=== PATIENT | male | born 1965 | race Caucasian/White ===

== ENCOUNTER 2023-08-28 23:19 | Emergency (ER) | payer BC, SELFPAY ==
[2023-08-28 23:19] VITALS: BMI 28.4
[2023-08-28 23:34] VITALS: BP 194/101
--- NOTE | 2023-08-29 00:26 | ED.GENMED ---
History of Present Illness
<BRENNAN Denis - Last Filed: 08/29/23 03:57>
General
Chief Complaint: Flank Pain
Source: patient and spouse
Exam Limitations: none
Time Seen by Provider: 08/29/23 00:15
Nursing documentation reviewed up to this point in time: agreed with
Travel History
Have you had any contact with someone who has COVID-19?: No
Do you have any symptoms of coronavirus? Fever > 100 degrees, chills, cough, shortness of breath, sore throat, loss of taste or smell, muscle aches, or headache?: No
History of Present Illness
History of Present Illness:
This is a 58 year old male, with a PMH of HTN, HLD, psoriasis, and kidney stones, who reports to the ED c/o left sided flank pain. Pt states the pain started 1 week ago, but only lasted for 1 hour before resolving. The pain returned this morning and
has been worsening since. Pt took tylenol around 3 hours ago which has not helped with the pain. He states the pain is constant and radiates down to the left side of his groin. This pain feels much worse than the last time he had a kidney stone. Pt
also states he has had reflux since eating azeri food and soda for dinner. He also states since arriving at the hospital, he has felt the urge to urinate but he has only urinated a little. He denies any CP, SOB, nausea, vomiting, dysuria,
hematuria, lightheadedness, dizziness, or constipation.
Pt last had a kidney stone in 2018 for which he had to have surgery to remove it from his ureter. He has a family history of kidney stones in his mother and sister. Pt drinks alcohol 3x weekly and denies any cigarette smoking or drug use.
Past History
<BRENNAN Denis - Last Filed: 08/29/23 03:57>
Past History
ED Past Medical History: HTN (no meds), Hypercholesterolemia and Other (kidney stones, psoriasis, hemorrhoids)
ED Past Surgical History: Urological (kidney stone removal)
Patient has exhibited threatening behavior?: No
Social History
Tobacco: Former smoker
Alcohol: Occasional
Drug: None
Personal:
Living: with family
Family History
Family History: Other (kidney stones)
Review of Systems
<BRENNAN Denis - Last Filed: 08/29/23 03:57>
Review of Systems
Allergies reviewed?: Yes
Other source history: family
All Other Systems: ROS reviewed and negative except as documented in HPI and ROS
Constitutional: Reports no symptoms; Denies fever or chills
EENT: Reports no symptoms
Respiratory: Reports no symptoms; Denies trouble breathing
Cardiac: Reports no symptoms; Denies chest pain
ABD/GI: Reports abdominal pain (left flank pain, left groin pain); Denies nausea, vomiting or constipated
: Reports flank pain and urgency; Denies dysuria, frequency or bleeding
Musculoskeletal: Reports no symptoms
Skin: Reports no symptoms
Neurological: Reports no symptoms; Denies dizzy
Psychiatric: Reports no symptoms
Phy Exam
<Ingrid Lynn [facility] - Last Filed: 08/29/23 03:57>
General Physical Exam
General Presentation: well appearing and no apparent distress
General age: appears stated age
General Skin: warm and dry
General Habitus: normal
General Mental: alert
General Hydration: appears well hydrated
ENT Exam
ENT Exam: neck supple and normocephalic
Cardiovascular Exam
Cardiovascular Exam: regular rate/rhythm, no edema, no murmur and normal peripheral pulses
Heart Sounds: normal
Pulmonary Exam
Pulmonary Exam: lungs clear, no respiratory distress, no crackles, no wheezing and no cough
Oxygen Status: room air
Gastrointestinal Exam
Gastrointestinal Exam: normal bowel sounds, non tender, soft and cva tenderness (left sided, no right sided CVA tenderness)
Neurological Exam
Neurological Exam: alert and oriented x3
Musculoskeletal Exam
Musculoskeletal Exam: full ROM and no edema
Skin Exam
Skin Exam: normal color, warm/dry and other (patches of psoriasis along bilateral lower extremities)
Psychiatric Exam
Psychiatric Exam: normal mood/affect
Course
<BRENNAN Denis - Last Filed: 08/29/23 03:57>
Orders/Labs/Results
Orders:
Orders
08/29/23 00:18
IV Insert/Care/Rem.- Treatment PRN
08/29/23 00:21
Complete Blood Count/With Diff Urgent
Comprehensive Metabolic Panel Urgent
Lipase Urgent
08/29/23 00:54
0.9% Sodium Chloride 1000 ml [Nss] 1,000 ml IV BOLUS
HYDROmorphone [Dilaudid] 1 mg IV NOW STA
Ondansetron Injectable [Zofran] 4 mg IV NOW STA
08/29/23 00:55
CT Abd/pel Without Iv Or Oral Stat
Comment:
Reason For Exam: L flank pain
08/29/23 02:47
Urinalysis Reflex To Culture Stat
Date Specimen was Collected: 08/29/23
Time Specimen was Collected: 02:46
Urine Microscopic Reflex Cult Stat
Urine Culture Stat
DARRION Source: U
Specimen Description:
Date Specimen was Collected: 08/29/23
Time Specimen was Collected: 02:46
08/29/23 02:50
Ketorolac [Toradol] 30 mg IV NOW STA
Abnormal Lab Results
08/29/23 08/29/23
00:21 02:47
WBC 11.6 H 10^3/uL
(4.8-10.8)
RBC 4.07 L 10^6/uL
(4.70-6.10)
Hgb 12.0 L g/dL
(13.0-18.0)
Hct 35.3 L %
(39.0-52.0)
Abs Immat Gran (auto) 0.1 H 10^3/uL
(0-0.05)
Absolute Neuts (auto) 8.4 H 10^3/uL
(1.4-6.5)
Absolute Monos (auto) 1.1 H 10^3/uL
(0.1-0.6)
Immature Gran % 1.2 H %
(0-0.5)
Lymphocytes % 14.3 L %
(20.5-51.1)
Glucose 137 H mg/dl
(70-99)
Ur Occult Blood Reflex 4+ A
(Negative)
Urine RBC >100 A /HPF
(0-2)
Urine Bacteria (Reflex) Moderate A
(Negative)
08/29/23 00:21
08/29/23 00:21
Vital Signs
Initial and Last Documented VS:
Initial Vital Signs
Temp Pulse Resp BP Pulse Ox
98.3 F 65 22 194/101 98
08/28/23 23:34 08/28/23 23:34 08/28/23 23:34 08/28/23 23:34 08/28/23 23:34
Last Documented Vital Signs
Temp Pulse Resp BP Pulse Ox
98.3 F 72 16 162/88 99
08/28/23 23:34 08/29/23 03:38 08/29/23 03:38 08/29/23 03:38 08/29/23 03:38
<Capo Parsons DO - Last Filed: 08/29/23 03:59>
Orders/Labs/Results
Orders:
Orders
08/29/23 00:18
IV Insert/Care/Rem.- Treatment PRN
08/29/23 00:21
Complete Blood Count/With Diff Urgent
Comprehensive Metabolic Panel Urgent
Lipase Urgent
08/29/23 00:54
0.9% Sodium Chloride 1000 ml [Nss] 1,000 ml IV BOLUS
HYDROmorphone [Dilaudid] 1 mg IV NOW STA
Ondansetron Injectable [Zofran] 4 mg IV NOW STA
08/29/23 00:55
CT Abd/pel Without Iv Or Oral Stat
Comment:
Reason For Exam: L flank pain
08/29/23 02:47
Urinalysis Reflex To Culture Stat
Date Specimen was Collected: 08/29/23
Time Specimen was Collected: 02:46
Urine Microscopic Reflex Cult Stat
Urine Culture Stat
DARRION Source: U
Specimen Description:
Date Specimen was Collected: 08/29/23
Time Specimen was Collected: 02:46
08/29/23 02:50
Ketorolac [Toradol] 30 mg IV NOW STA
Abnormal Lab Results
08/29/23 08/29/23
00:21 02:47
WBC 11.6 H 10^3/uL
(4.8-10.8)
RBC 4.07 L 10^6/uL
(4.70-6.10)
Hgb 12.0 L g/dL
(13.0-18.0)
Hct 35.3 L %
(39.0-52.0)
Abs Immat Gran (auto) 0.1 H 10^3/uL
(0-0.05)
Absolute Neuts (auto) 8.4 H 10^3/uL
(1.4-6.5)
Absolute Monos (auto) 1.1 H 10^3/uL
(0.1-0.6)
Immature Gran % 1.2 H %
(0-0.5)
Lymphocytes % 14.3 L %
(20.5-51.1)
Glucose 137 H mg/dl
(70-99)
Ur Occult Blood Reflex 4+ A
(Negative)
Urine RBC >100 A /HPF
(0-2)
Urine Bacteria (Reflex) Moderate A
(Negative)
08/29/23 00:21
08/29/23 00:21
Vital Signs
Initial and Last Documented VS:
Initial Vital Signs
Temp Pulse Resp BP Pulse Ox
98.3 F 65 22 194/101 98
08/28/23 23:34 08/28/23 23:34 08/28/23 23:34 08/28/23 23:34 08/28/23 23:34
Last Documented Vital Signs
Temp Pulse Resp BP Pulse Ox
98.3 F 72 16 162/88 99
08/28/23 23:34 08/29/23 03:38 08/29/23 03:38 08/29/23 03:38 08/29/23 03:38
<DO Zion Flores Last Filed: 08/29/23 03:59>
MDM/Problems Addressed
MDM/Problems Addressed:
Nephrolithiasis, uncontrolled hypertension
<DO Zion Flores Last Filed: 08/29/23 03:59>
*Radiology
Radiology exam reviewed: preliminary read by ED provider (10 mm stone with hydronephrosis and obstruction on the left)
*Pulse Oximetry
Patient hypoxic: no
*Critical Care Note
Total Time (30-74mins, 75-104mins- exclusive of procedures): Not Applicable
Data Reviewed
Review of Other/Old Records Reveals: Operative Reports (2018 operative report for left ureteral stone)
Source: patient and spouse
<DO Zion Flores Last Filed: 08/29/23 03:59>
Update Note
Update Note:
Patient feels much better and would like to trial outpatient management with follow-up with urology to consider possible lithotripsy versus other more definitive management. Pain is controlled, no overt signs of UTI. Treat with Flomax and pain
control
ED Attending Note
<BRENNAN Denis - Last Filed: 08/29/23 03:57>
-
Portions of this chart may have been created with voice recognition software.� Occasional wrong word or��sound alike� substitutions may have occurred due to the inherent limitations of voice recognition software.
<Capo Parsons DO - Last Filed: 08/29/23 03:59>
ED Attending Note
Patient seen and examined by attending physician: Yes
I performed a history and physical exam of patient and discussed management with resident, I reviewed resident's note and agree with documented findings and plan of care.: Yes
ED Attending Note:
58-year-old male with acute left flank pain. Patient states feels like previous kidney stone but worse. Vomited here in the emergency department. Does have hypertension but did not take his lisinopril today. Pain is severe. Exam: Awake and
alert in moderate pain distress, no CVA tenderness, abdomen soft and nontender. Assessment plan: Check CT, labs, urinalysis, pain control.
Discharge Plan
Departure
Patient Disposition: Home (Routine Discharge)
Date of Disposition: 08/29/23
Time of Disposition: 03:53
Patient with high blood pressure during this ER visit?: Yes
Condition: Good
Discharge Problem:
Nephrolithiasis, Uncontrolled hypertension, Kidney stone on left side
Instructions: Kidney Stones (DC), BLOOD PRESSURE, Narcotic Pain Medication
Prescriptions:
New
tamsulosin [Flomax] 0.4 mg capsule
0.4 mg PO HS Qty: 20 0RF
hydrocodone-acetaminophen 5-325 mg tablet
2 tab PO Q6H PRN (Reason: Pain) Qty: 15 0RF
Referrals:
Kyra Beltrán NP [Family Provider] -
Activity Restrictions/Additional Instructions:
Take ibuprofen as needed for pain control and drink plenty of fluids. Recommend follow up with urology within 3-5 days for further management of kidney stone. If you develop a fever, chest pain, shortness of breath, worsening pain, intractable
vomiting, or significant blood in the urine, return to the emergency room immediately.
Interventions
Interventions:
*General Assessment Last Done: 08/29/23 00:23
*Neglect/Abuse Screening Last Done: 08/29/23 00:23
ED- Fall Risk Assessment Last Done: 08/29/23 00:20
QC-Anynyu-Hknalphcqu Assessment Last Done: 08/29/23 00:20
ED-Male Genitourinary Assessment Last Done: 08/29/23 00:20
[2023-08-29 00:44] LABS: % Basophils 0.4 % (0-2); % Eosinophils 2.8 % (0-6); % Immature Granulocytes 1.2 % (0-0.5); % Lymphocytes 14.3 % (20.5-51.1); % Monocytes 9.1 % (1.7-9.3); % Neutrophils 72.2 % (42.2-75.2); Absolute Basophils 0.1 10^3/uL (0-0.2); Absolute Eosinophils 0.3 10^3/uL (0-0.7); Absolute Immature Granulocytes 0.1 10^3/uL (0-0.05); Absolute Lymphocytes 1.7 10^3/uL (1.2-3.4); Absolute Monocytes 1.1 10^3/uL (0.1-0.6); Absolute Neutrophils 8.4 10^3/uL (1.4-6.5); Hematocrit 35.3 % (39.0-52.0); Mean Corpuscular Hgb 29.5 pg (27.0-31.0); Mean Corpuscular Volume 86.7 fL (80.0-94.0); Mean Platelet Volume 10.4 fL (7.4-10.4); Nucleated Red Blood Cells % 0 % (-); Platelet Count 307 10^3/uL (130-400); Red Blood Cell Count 4.07 10^6/uL (4.70-6.10); Red Cell Dist. Width 12.2 % (11.5-14.5); White Blood Cell Count 11.6 10^3/uL (4.8-10.8)
[2023-08-29 00:51] LABS: ALT (SGPT) 21 U/L (0-50); AST (SGOT) 25 U/L (17-59); Albumin 4.4 g/dl (3.5-5.0); Alkaline Phosphatase 99 U/L (38-126); Blood Urea Nitrogen 15 mg/dl (9-20); Calcium 9.3 mg/dl (8.4-10.2); Carbon Dioxide 23 mmol/L (22-30); Chloride 101 mmol/L (98-107); Estimated Creatinine Clearance 94 ml/min; Glucose 137 mg/dl (70-99); Sodium 138 mmol/L (135-145); Total Bilirubin 0.6 mg/dl (0.2-1.3); Total Protein 7.2 g/dl (6.3-8.2); eGFR > 60.00
[2023-08-29] MEDS: ZOFRAN 4 MG IV (00:57)
[2023-08-29] MEDS: NSS 1000 IV (00:59)
[2023-08-29] MEDS: DILAUDID 1 MG IV (01:00)
[2023-08-29 01:11] LABS: Lipase 220 U/L (23-300)
[2023-08-29 01:45] VITALS: BP 179/94
[2023-08-29] MEDS: TORADOL 30 MG IV (02:55)
[2023-08-29 02:57] LABS: Urine Albumin Trace (Neg - Trace); Urine Bilirubin Negative (Negative); Urine Character Clear (Clear); Urine Color Yellow; Urine Glucose Negative (Negative); Urine Ketone Negative (Negative); Urine Leukocyte Negative (Negative); Urine Nitrite Negative (Negative); Urine Occult Blood 4+ (Negative); Urine Urobilinogen Negative (Neg - 1+)
[2023-08-29 03:06] LABS: Urine Amorphous Seen; Urine Red Blood Cell >100 /HPF (0-2); Urine Squamous Cell >30 /LPF (Few)
[2023-08-29 03:07] LABS: Urine Bacteria Moderate (Negative); Urine Calcium Oxalate Crystals Seen
[2023-08-29 03:38] VITALS: BP 162/88
== END 2023-08-29 04:40 | disposition home or self-care (01) ==
LOC: EMR 23:19
PROVIDERS: EMERGENCY PHYSICIAN Emergency Medicine; FAMILY PHYSICIAN Nurse Practitioner Family
DX: R10.9 Unspecified abdominal pain (principal); I10 Essential (primary) hypertension; E78.00 Pure hypercholesterolemia, unspecified; L40.9 Psoriasis, unspecified
CPT/HCPCS: 99284; 96374; 96375; 96361; 74176; 80053; 81003; 81015; 83690; 85025; 87086

== ENCOUNTER → 2023-09-01 13:34 | Outpatient (REF) | payer BC, SELFPAY ==
[2023-09-01 15:12] LABS: % Basophils 0.7 % (0-2); % Eosinophils 2.2 % (0-6); % Immature Granulocytes 0.3 % (0-0.5); % Lymphocytes 26.2 % (20.5-51.1); % Monocytes 10.7 % (1.7-9.3); % Neutrophils 59.9 % (42.2-75.2); Absolute Eosinophils 0.1 10^3/uL (0-0.7); Absolute Lymphocytes 1.6 10^3/uL (1.2-3.4); Absolute Monocytes 0.6 10^3/uL (0.1-0.6); Absolute Neutrophils 3.6 10^3/uL (1.4-6.5); Hematocrit 34.8 % (39.0-52.0); Hemoglobin 11.8 g/dL (13.0-18.0); Mean Corp Hgb Conc. 33.9 g/dL (33.0-37.0); Mean Corpuscular Hgb 28.9 pg (27.0-31.0); Mean Corpuscular Volume 85.1 fL (80.0-94.0); Mean Platelet Volume 10.1 fL (7.4-10.4); Nucleated Red Blood Cells % 0 % (-); Platelet Count 304 10^3/uL (130-400); Red Blood Cell Count 4.09 10^6/uL (4.70-6.10); Red Cell Dist. Width 12.4 % (11.5-14.5)
[2023-09-01 15:38] LABS: ALT (SGPT) 19 U/L (0-50); AST (SGOT) 22 U/L (17-59); Albumin 4.3 g/dl (3.5-5.0); Alkaline Phosphatase 81 U/L (38-126); Blood Urea Nitrogen 18 mg/dl (9-20); Calcium 9.6 mg/dl (8.4-10.2); Carbon Dioxide 28 mmol/L (22-30); Chloride 99 mmol/L (98-107); Glucose 111 mg/dl (70-99); HDL Cholesterol 39 mg/dl; LDL Cholesterol, Calculated 68 mg/dl; Potassium 4.3 mmol/L (3.5-5.1); Sodium 138 mmol/L (135-145); Total Bilirubin 0.9 mg/dl (0.2-1.3); Total Cholesterol 153 mg/dl (50-199); Total Protein 7.1 g/dl (6.3-8.2); Triglyceride 231 mg/dl (10-149); Very Low Density Lipoprotein 46 mg/dl (0-30); eGFR > 60.00
[2023-09-01 16:27] LABS: Hepatitis C Antibody Negative (Negative)
== END ==
LOC: HWLAB 13:34
PROVIDERS: ATTENDING PHYSICIAN Nurse Practitioner Family
DX: Z11.59 Encounter for screening for other viral diseases (principal); I10 Essential (primary) hypertension; E78.1 Pure hyperglyceridemia
CPT/HCPCS: 36415; 80053; 80061; 85025; 86803

== ENCOUNTER 2023-09-03 06:12 | Day surgery (SDC) | payer BC, SELFPAY ==
[2023-09-03] VITALS (9 sets, daily range): BP systolic 140–164; BP diastolic 74–89; BMI 27.4
[2023-09-03] MEDS: NORMOSOL-R 1000 IV (06:38)
[2023-09-03] MEDS: FLOMAX 0.400000000000000022 MG PO (09:00)
[2023-09-03] MEDS: Pyridium 200 MG PO (09:10)
--- NOTE | 2023-09-03 09:21 | SUR.PHASEI ---
Assumed care of pt , received report from Pancho Thomason
== END 2023-09-03 10:00 | disposition home or self-care (01) ==
LOC: SDS 06:12
PROVIDERS: ATTENDING PHYSICIAN Specialist
DX: N20.1 Calculus of ureter (principal)
CPT/HCPCS: 52356; 74420; 76000; 93005; C1758; C2617

== ENCOUNTER 2025-06-16 06:00 | Emergency (ER) | payer BC, SELFPAY ==
[2025-06-16 06:03] VITALS: BP 203/110
--- NOTE | 2025-06-16 06:24 | ED.GENMED ---
History of Present Illness
General
Chief Complaint: Fainting Sensation
Source: patient
Exam Limitations: none
Time Seen by Provider: 06/16/25 06:23
Nursing documentation reviewed up to this point in time: agreed with
History of Present Illness
History of Present Illness:
Patient is a 60-year-old male with past medical history of hypertension hyperlipidemia who presents to the ER for evaluation. Patient reports for the past several days to a week he has felt a little lightheaded and queasy when he stands up. He has
been checking his blood pressure and it was elevated. Last evening around 6:30 PM he felt similar symptoms his blood pressure was elevated around 220/112. He had no associated headache or visual disturbance. He reports intermittently he has had
left-sided upper/neck chest he reports it comes and goes sporadically. He believes he had an episode several days(3 d ) ago it will come and go and last sometimes for a day and then resolve again. He plays basketball twice a week and does not get
any associated chest pain. He does report he ran out and stopped taking his lisinopril 3 months ago.
He also was prescribed atorvastatin but has not taken that in a while.
Past History
Past History
ED Past Medical History: HTN (no meds), Hypercholesterolemia and Other (kidney stones, psoriasis, hemorrhoids)
ED Past Surgical History: Urological (kidney stone removal)
Patient has exhibited threatening behavior?: No
Social History
Tobacco: Former smoker
Alcohol: Occasional
Drug: None
Personal:
Living: with family
Family History
Family History: Other (kidney stones)
Phy Exam
General Physical Exam
General Presentation: no apparent distress
General age: appears stated age
General Skin: warm and dry
General Habitus: normal
General Mental: alert
General Hydration: appears well hydrated
Cardiovascular Exam
Cardiovascular Exam: regular rate/rhythm, no murmur and normal peripheral pulses
Pulmonary Exam
Pulmonary Exam: lungs clear and no respiratory distress
Neurological Exam
Neurological Exam: alert and oriented x3
Musculoskeletal Exam
Musculoskeletal Exam: full ROM
Skin Exam
Skin Exam: normal color and warm/dry
Psychiatric Exam
Psychiatric Exam: normal mood/affect
Course
Orders/Labs/Results
Orders:
Orders
06/16/25 06:01
EKG [Electrocardiogram (*1)] Urgent
Reason for Study: Vertigo / Dizzy
EKG- Treatment ONCE
06/16/25 06:36
Cardiac Monitoring- Treatment ONCE
IV Insert/Care/Rem.- Treatment PRN
06/16/25 06:45
Complete Blood Count/With Diff Urgent
Comprehensive Metabolic Panel Urgent
Troponin I Urgent
Abnormal Lab Results
06/16/25
06:45
RBC 4.48 L 10^6/uL
(4.70-6.10)
Hgb 10.9 L g/dL
(13.0-18.0)
Hct 34.5 L %
(39.0-52.0)
MCV 77.0 L fL
(80.0-94.0)
MCH 24.3 L pg
(27.0-31.0)
MCHC 31.6 L g/dL
(33.0-37.0)
RDW 15.8 H %
(11.5-14.5)
Absolute Monos (auto) 0.7 H 10^3/uL
(0.1-0.6)
Lymphocytes % 19.6 L %
(20.5-51.1)
Glucose 137 H mg/dl
(70-99)
06/16/25 06:45
06/16/25 06:45
Vital Signs
Initial and Last Documented VS:
Initial Vital Signs
Temp Pulse Resp BP
98.3 F 75 18 203/110
12/05/25 06:03 06/16/25 06:03 06/16/25 06:03 06/16/25 06:03
Last Documented Vital Signs
Temp Pulse Resp BP Pulse Ox
98.3 F 73 16 151/94 98
06/16/25 06:03 06/16/25 07:15 06/16/25 07:15 06/16/25 07:00 06/16/25 07:15
Custom Home Installer consulted with Physician
Custom Home Installer consulted with physician?: Yes
Name of Physician Consulted: coretta
MDM/Problems Addressed
Differential Diagnosis Includes:
Not limited to hypertension less likely ACS electrolyte abnormality
MDM/Problems Addressed:
As documented patient is a 60-year-old male who presented for lightheadedness for the past several days with standing felt mildly nauseous. He has intermittent episodes of mild chest discomfort not associate with exertion. As document he plays
basketball without any chest pain. He plays several times a week. He has not been taking his blood pressure medicine over the past 3 months .
He has no associated headache. He presents awake alert no acute distress asymptomatic, no chest pain. No complaints of headache. Negative cardiac troponin no acute findings on EKG normal renal function. Blood pressure though elevated has
improved .symptoms of lightheadedness likely from elevated blood pressure. Normal neurologic exam
Patient is mildly anemic reports he is aware of this he has chronic hemorrhoids and is prescribed iron bu GI.
Will DC home with new prescription for lisinopril which was sent to patient's pharmacy along with outpatient chest pain hotline.
Chronic conditions affecting care:
htn, hyperlipidemia
*Pulse Oximetry
SaO2: 98
Patient hypoxic: no
*EKG
Interpreted by ED Provider?: Yes
Interpretation: abnormal
Heart Rate: 78
Rate: normal
Rhythm: sinus
Ischemia: non-specific ST changes
*Critical Care Note
Total Time (30-74mins, 75-104mins- exclusive of procedures): Not Applicable
ED Attending Note
-
Portions of this chart may have been created with voice recognition software.� Occasional wrong word or��sound alike� substitutions may have occurred due to the inherent limitations of voice recognition software.
Discharge Plan
Departure
Patient Disposition: Home (Routine Discharge)
Date of Disposition: 06/16/25
Time of Disposition: 07:52
Patient with high blood pressure during this ER visit?: Yes
Condition: Fair
Covid-19: Not Applicable
Discharge Problem:
elevated blood pressure, Chest pain
Instructions: Chest Pain DCA Follow Up, BLOOD PRESSURE
Prescriptions:
New
lisinopril 40 mg tablet
40 mg PO DAILY Qty: 30 0RF
No Action
tamsulosin [Flomax] 0.4 mg capsule
0.4 mg PO HS Qty: 20 0RF
hydrocodone-acetaminophen 5-325 mg tablet
2 tab PO Q6H PRN (Reason: Pain) Qty: 15 0RF
atorvastatin 80 mg Tablet
80 mg PO NOON
lisinopril 20 mg Tablet
20 mg PO NOON
aspirin 81 mg Tablet
81 mg PO NOON
Referrals:
Kyra Beltrán NP [Family Provider, Family Practice]
Kevin Wells MD [Active, Cardiology]
Activity Restrictions/Additional Instructions:
As discussed please take your blood pressure medication as prescribed. This medicine was sent to your pharmacy. In addition please follow a low-salt diet. Follow-up with your family doctor in the next several days for reevaluation of blood
pressure recheck. Also you are placed on the chest pain hotline for reevaluation of chest discomfort. You should receive a phone call from the cardiology office in the next several days if you do not please give them a call to schedule an
appointment as soon as possible. Return if any worsening of symptoms.
Interventions
Interventions:
*Risk Screen - Suicide Last Done: 06/16/25 06:03
*General Assessment Last Done: 06/16/25 08:12
*Neglect/Abuse Screening Last Done: 06/16/25 08:12
*ED COVID-19 Vaccine History Last Done: 06/16/25 08:12
*ED Influenza Vaccine History Last Done: 06/16/25 08:12
[facility] Fall Risk Assessment Tool Last Done: 06/16/25 08:12
*Nursing Disposition Last Done: 06/16/25 08:12
ED- Cardiac Assessment Last Done: 06/16/25 06:50
ED- Neurological Assessment Last Done: 06/16/25 06:50
Discharge Date and Time
Print Language: [place]
[2025-06-16 06:52] LABS: Hematocrit 34.5 % (39.0-52.0); Hemoglobin 10.9 g/dL (13.0-18.0); Mean Corp Hgb Conc. 31.6 g/dL (33.0-37.0); Mean Corpuscular Volume 77.0 fL (80.0-94.0); Nucleated Red Blood Cells % 0 % (-); Platelet Count 306 10^3/uL (130-400); Red Cell Dist. Width 15.8 % (11.5-14.5)
[2025-06-16 07:00] VITALS: BP 151/94
[2025-06-16 07:11] LABS: ALT (SGPT) 17 U/L (0-50); AST (SGOT) 20 U/L (17-59); Albumin 4.5 g/dl (3.5-5.0); Alkaline Phosphatase 78 U/L (38-126); Blood Urea Nitrogen 16 mg/dl (9-20); Calcium 8.8 mg/dl (8.4-10.2); Carbon Dioxide 27 mmol/L (22-30); Chloride 103 mmol/L (98-107); Glucose 137 mg/dl (70-99); Potassium 4.1 mmol/L (3.5-5.1); Sodium 135 mmol/L (135-145); Total Protein 7.4 g/dl (6.3-8.2); eGFR > 60.00
[2025-06-16 07:23] LABS: Troponin I < 0.012 ng/ml
[2025-06-16 08:00] VITALS: BP 157/90
== END 2025-06-16 08:14 | disposition home or self-care (01) ==
LOC: EMR 06:00
PROVIDERS: Nurse Practitioner; EMERGENCY PHYSICIAN Emergency Medicine; FAMILY PHYSICIAN Nurse Practitioner Family
DX: R55 Syncope and collapse (principal); I10 Essential (primary) hypertension; E78.00 Pure hypercholesterolemia, unspecified; D64.9 Anemia, unspecified; Z87.19 Personal history of other diseases of the digestive system; Z87.442 Personal history of urinary calculi; Z87.891 Personal history of nicotine dependence; Z91.148 Patient's other noncompliance with medication regimen for other reason
CPT/HCPCS: 99283; 80053; 84484; 85025; 93005